=== PATIENT | female | born 1985 | race African-American/Black ===

== ENCOUNTER 2016-11-08 14:02 | Observation (INO) ==
--- NOTE | 2016-11-08 15:21 | Emergency Department Note ---
Arrival - Arrival Chief Complaint: Upper Respiratory Stated Complaint: sob,cp,coughing ED Nursing Triage Note: C/O CHEST PAIN WITH COUGHING. PT STATES "SHE IS COUGHING UP GREEN THICK MUCUS". PT IS 13 WEEKS GESTATION. Mode of Arrival: Wheelchair Source: Patient Time Seen by Provider: 11/08/16 15:02 - History of Present Illness HPI Narrative: 31 y/o female presents to the ER complaining of chest pain, dyspnea, and productive cough. Symptoms started 4-5 days ago. Patient states she was seen in the ER on 11/04/16 and given steroids and breathing treatments with little relief. Patient states she is using her albuterol at home but symptoms are not improving. Denies fever or chills. Patient is currently 13 weeks . Past medical history significant for migraine, HTN, Asthma, sleep apnea, GERD, Hemorrhoids, NIDDM, Anemia, and anxiety. Onset (ago): day(s) (4-5) Consistency: constant Severity: mild Allergies/Adverse Reactions: Allergies Allergy/AdvReac Type Severity Reaction Status Date / Time Cefaclor [From Ceclor] Allergy ANAPHYLAXIS Verified 06/04/16 21:03 hydrocodone [From Lortab] Allergy HIVES Verified 06/04/16 21:03 Penicillins Allergy ANAPHYLAXIS Verified 06/04/16 21:03 sumatriptan [From Imitrex] Allergy HIVES Verified 06/04/16 21:03 Home Medications: Home Medications Medication Instructions Recorded Confirmed Type Albuterol Sulfate [Albuterol Neb] 2.5 mg RESP TX Q4HR PRN 06/03/16 06/04/16 History Calcium (Citrate) [Citracal] 600 mg DAILY 06/03/16 06/04/16 History Cholecalciferol (Vitamin D3) 1,000 units DAILY 06/03/16 06/04/16 History [Vitamin D3] Fluticasone/Vilanterol [Breo 1 puff INH DAILY 06/03/16 06/04/16 History Ellipta 100-25 Mcg INH] Garlic 1,000 mg PO DAILY 06/03/16 06/04/16 History Nieves Root 550 mg DAILY 06/03/16 06/04/16 History Levalbuterol Tartrate [Xopenex Hfa 450 mcg INH DAILY PRN 06/03/16 06/04/16 History Inhaler] Magnesium Oxide 400 mg PO DAILY 06/03/16 06/04/16 History Aubrey-3 Fatty Acids [Fish Oil] 1,000 mg DAILY 06/03/16 06/04/16 History Potassium Chloride [Klor-Con M20] 20 meq PO DAILY 06/03/16 06/04/16 History Promethazine Tab [Phenergan Tab] 25 mg PO Q4H 06/03/16 06/04/16 History Saccharomyces Boulardii [Probiotic] 1 tablet DAILY 06/03/16 06/04/16 History Sitagliptin Phos/Metformin HCl 1 each PO DAILY 06/03/16 06/04/16 History [Janumet Xr 100-1,000 mg Tablet] Triamterene/Hydrochlorothiazid 1 each PO DAILY 06/03/16 06/04/16 History [Triamterene-Hctz 37.5-25 mg Cp] clonazePAM [Clonazepam] 1 mg PO BID PRN 06/03/16 06/04/16 History diphenhydrAMINE HCl 25 mg PO Q6H PRN 06/05/16 06/05/16 History [diphenhydrAMINE Tab] oxyCODONE/ACETAMINOPHEN 5-325 1 tablet PO Q4H #30 tablet 06/07/16 Rx [Percocet 5-325] Review of System - Review of System 12 point system: reviewed and no additional remarkable complaints except as stated - Review of System Respiratory: Present: cough, wheezing, other (dyspnea) Medical,Surgical,& Family Hx - Medical History Cardio: History of: Hypertension Psychological: History of: Anxiety Disorders (Takes kolonpin PRN for anxiety) Neurology: History of: Migraine HEENT: Comment Only: Eye Problem (wears glasses) Endocrine: History of: Diabetes Mellitus (NIDDM) Respiratory: History of: Asthma, Obstructive Sleep Apnea (Does wear a CPAP at night), Respiratory Problems Gastrointestinal: History of: GERD, Hemorrhoids Musculoskeletal: History of: Back/Neck Problems (Lower Back Pain) No history of: Musculoskeletal Problems Hematology: History of: Anemia (Iron Deficent Anemia. Takes a shot once a month) Other: History of: Miscellaneous Medical Problems (morbid obesity) - Surgical History Reproductive Surgeries: Surgical HX of;: Breast Surgery (1997), Genitourinary Surgery - Family History Family History: Reports;: Family Hypertension - Social History Smoking Status: Never smoker Frequency of Alcohol Use: None Type of Drug Use: None Exam Vital Signs: Vital Signs Temperature 98.0 F 11/08/16 15:05 Pulse Rate 91 H 11/08/16 15:05 Respiratory Rate 24 11/08/16 15:05 Blood Pressure 141/114 11/08/16 15:05 O2 Sat by Pulse Oximetry 98 11/08/16 14:11 - General General appearance: alert, in no apparent distress - ENT ENT exam: Present: normal exam, normal oropharynx, mucous membranes moist - Chest Chest inspection: Present: normal inspection - Respiratory Respiratory exam: Present: normal lung sounds bilaterally - Cardiovascular Cardiovascular exam: Present: regular rate, normal rhythm, normal heart sounds - Abdominal Exam Abdominal exam: Present: soft, normal bowel sounds. Absent: tenderness - Extremities Exam Extremities exam: Present: normal inspection, full ROM - Neurological Exam Neurological exam: Present: alert, oriented X3 - Psychiatric Psychiatric exam: Present: normal affect, normal mood - Skin Skin exam: Present: warm, dry Course - Consultations Consultation #1: Dr. Mack Time: 16:05 (Will admit to Dr. Mack for asthma exacerbation ) Results - Labs CBC & BMP: 11/08/16 15:39 Lab Results: I have reviewed the patients labs Disposition Clinical Impression: Asthma exacerbation, Case discussed with: patient Disposition: Still a Patient Condition: Stable
[2016-11-08] MEDS ORDERED: ALBUTEROL 2.5 MG/3 ML NEB RESP TX STA (15:53)
[2016-11-08 15:56] LABS: Basophils % 0.2 % (0.0-0.8); Eosinophils # 0.1 10*3/uL (0.0-0.87); Eosinophils % 1.1 % (0.00-10.9); Hematocrit 32.2 VOL% (35.7-47.0); Hemoglobin 11.1 GM/DL (12.0-16.0); Immature Granulocytes % 0.4 %; Immature Granulocytes Absolute 0.05 #; Lymphocytes # 3.8 10*3/uL (1.4-4.0); Lymphocytes % 33.7 % (21.3-54.2); Mean Corpuscular HGB Conc 34.5 GM/DL (32-36); Mean Corpuscular Hemoglobin 30 PG (27-34); Mean Corpuscular Volume 86.6 FL (87-102); Mean Platelet Volume 8.5 FL (9.6-12.0); Monocytes # 0.8 10*3/uL (0.11-0.8); Monocytes % 7.3 % (1.7-12.7); Neutrophils # 6.5 10*3/uL (1.4-7.4); Neutrophils % 57.3 % (38.7-73.9); Platelet Count 265 T/CUMM (130-400); Red Blood Count 3.72 MC/CUMM (3.8-5.5); Red Cell Distribution Width 12.7 % (9.3-17.3); White Blood Count 11.4 T/CUMM (4-12)
[2016-11-08 16:24] LABS: Albumin 3.3 G/DL (3.4-5.0); Bilirubin,Total 0.4 MG/DL (0.2-1.0); Calcium 9.5 MG/DL (8.5-10.1); Osmolality,Calculated 269.7 MOS/KG (273-304); Potassium 3.4 MMOL/L (3.5-5.1); Total Protein 6.8 G/DL (6.4-8.3)
--- NOTE | 2016-11-08 16:51 | Hospitalist Consult Note ---
<Arturo Harrison - Last Filed: 11/08/16 16:52> Assessment and Plan (1) Asthma exacerbation Status: Acute Assessment and plan: We will medically manage symptoms during this admission. Will start corticosteriods and nebulizer treatments. Current Visit: Yes (2) Dehydration during Status: Acute Assessment and plan: Will replace volume. Repeat labs in AM. Current Visit: Yes History of Present Illness - Data of Consult Consult date: 11/08/16 Requesting Physician: Zee Mack - Consult Narrative Reason for consult: medical management of asthma History of present illness: This is a 31 year old -Iranian female that presented the ED with symptoms associated with asthma. The patient has a very impressive medical history of asthma, GERD, hypertension, anxiety, anemia, NIDDM, and obstructive sleep apnea. The patient is currently 13 weeks gestation at the present time. She was previously seen in the ED on 11/04 for symptoms similar in nature; in which she was evaluated, treated, and discharged home. She has had minimal relief since her previous hospital admission. She used her inhalers and took several nebulizer treatments; with minimal relief. Her symptoms became very severe this morning; she became alarmed. She presented to the ED for evaluation. She was seen and evaluated by the ED physician and her Dr. Mack her OB provider was notified. Upon further discussion, it was decided that the patient condition warranted hospital admission for the management of this condition. We were consulted by Dr. Mack to medically manage the patient's co- morbidities during this hospital admission. CC: - Home Medications and Allergies Home Medications: Home Medications Medication Instructions Recorded Confirmed Type Albuterol Sulfate [Albuterol Neb] 2.5 mg RESP TX Q4HR PRN 06/03/16 06/04/16 History Calcium (Citrate) [Citracal] 600 mg DAILY 06/03/16 06/04/16 History Cholecalciferol (Vitamin D3) 1,000 units DAILY 06/03/16 06/04/16 History [Vitamin D3] Fluticasone/Vilanterol [Breo 1 puff INH DAILY 06/03/16 06/04/16 History Ellipta 100-25 Mcg INH] Garlic 1,000 mg PO DAILY 06/03/16 06/04/16 History Nieves Root 550 mg DAILY 06/03/16 06/04/16 History Levalbuterol Tartrate [Xopenex Hfa 450 mcg INH DAILY PRN 06/03/16 06/04/16 History Inhaler] Magnesium Oxide 400 mg PO DAILY 06/03/16 06/04/16 History Patterson-3 Fatty Acids [Fish Oil] 1,000 mg DAILY 06/03/16 06/04/16 History Potassium Chloride [Klor-Con M20] 20 meq PO DAILY 06/03/16 06/04/16 History Promethazine Tab [Phenergan Tab] 25 mg PO Q4H 06/03/16 06/04/16 History Saccharomyces Boulardii [Probiotic] 1 tablet DAILY 06/03/16 06/04/16 History Sitagliptin Phos/Metformin HCl 1 each PO DAILY 06/03/16 06/04/16 History [Janumet Xr 100-1,000 mg Tablet] Triamterene/Hydrochlorothiazid 1 each PO DAILY 06/03/16 06/04/16 History [Triamterene-Hctz 37.5-25 mg Cp] clonazePAM [Clonazepam] 1 mg PO BID PRN 06/03/16 06/04/16 History diphenhydrAMINE HCl 25 mg PO Q6H PRN 06/05/16 06/05/16 History [diphenhydrAMINE Tab] oxyCODONE/ACETAMINOPHEN 5-325 1 tablet PO Q4H #30 tablet 06/07/16 Rx [Percocet 5-325] Allergies/Adverse Reactions: Allergies Allergy/AdvReac Type Severity Reaction Status Date / Time Cefaclor [From Ceclor] Allergy ANAPHYLAXIS Verified 06/04/16 21:03 hydrocodone [From Lortab] Allergy HIVES Verified 06/04/16 21:03 Penicillins Allergy ANAPHYLAXIS Verified 06/04/16 21:03 sumatriptan [From Imitrex] Allergy HIVES Verified 06/04/16 21:03 Medical,Surgical,& Family Hx - Medical History Cardio: History of: Hypertension Psychological: History of: Anxiety Disorders (Takes kolonpin PRN for anxiety) Neurology: History of: Migraine HEENT: Comment Only: Eye Problem (wears glasses) Endocrine: History of: Diabetes Mellitus (NIDDM) Respiratory: History of: Asthma, Obstructive Sleep Apnea (Does wear a CPAP at night), Respiratory Problems Gastrointestinal: History of: GERD, Hemorrhoids Musculoskeletal: History of: Back/Neck Problems (Lower Back Pain) No history of: Musculoskeletal Problems Hematology: History of: Anemia (Iron Deficent Anemia. Takes a shot once a month) Other: History of: Miscellaneous Medical Problems (morbid obesity) - Surgical History Reproductive Surgeries: Surgical HX of;: Breast Surgery (1997), Genitourinary Surgery - Family History Family History: Reports;: Family Hypertension - Social History Smoking Status: Never smoker Frequency of Alcohol Use: None Type of Drug Use: None 12 point system: reviewed and no additional remarkable complaints except as stated Exam - Constitutional Vitals: Period Temp Pulse Resp BP Sys/Sue Pulse Ox Last 24 Hr 98 F-98.0 F 90-91 20-24 141-151/93-114 98 General appearance: mild distress, over weight - Head Head exam: Present: normal inspection, normocephalic - Eye Eye exam: Present: EOMI Pupils: Present: LINDA, normal accommodation - ENT ENT exam: Present: normal exam - Neck Neck exam: Present: normal inspection. Absent: lymphadenopathy, meningismus, thyromegaly - Respiratory Respiratory exam: Present: accessory muscle use, wheezes. Absent: decreased breath sounds, rales, rhonchi, stridor - Cardiovascular Cardiovascular exam: Present: regular rate and rhythm. Absent: carotid bruit, diastolic murmur, gallop, JVD, rubs, systolic murmur - GI/Abdominal GI/Abdominal exam: Present: normal bowel sounds, soft - Extremities Exam Extremities exam: Present: normal inspection, normal capillary refill, full ROM - Back Exam Back exam: Present: normal inspection - Neurological Exam Neurological exam: Present: alert, oriented X3, CN II-XII intact, reflexes normal - Psychiatric Psychiatric exam: Present: normal affect - Skin Skin exam: Present: normal color, warm, dry Results - Labs CBC & BMP: 11/08/16 15:39 11/08/16 15:39 Lab Results: I have reviewed the past 24 hour labs <Kenyon Giron - Last Filed: 11/08/16 19:06> History of Present Illness - Consult Narrative History of present illness: Ms. Atwood is a 31 year old female who was case have discussed with the nurse practitioner, and have seen the patient independently. On exam she does not have significant wheeze. Breath sounds are clear but distant likely due to body habitus. She is in no acute distress, eating dinner. Agree with plan as outlined in the consultation. CC: Zee Mack, DO Exam - Constitutional Vitals: Period Temp Pulse Resp BP Sys/Sue Pulse Ox Last 24 Hr 98.6 F 90-104 18-22 101-151/57-93 98-98 Results - Labs CBC & BMP: 11/08/16 15:39 11/08/16 15:39
[2016-11-08] MEDS ORDERED: DEXTROSE 50% 25 GM/50 ML VIAL IV PRN ×2 (18:15)
[2016-11-08] MEDS ORDERED: GLUCAGON 1 MG VIAL IM PRN ×2 (18:15)
[2016-11-08] MEDS ORDERED: ACETAMINOPHEN 325 MG TABLET PO PRN (19:04)
--- NOTE | 2016-11-08 19:28 | XRay Report ---
Exam: XR chest 1V portable Date: 11/08/2016 6:58 PM Indication: Asthma exacerbation Comparison: 06/04/2016 Technical: AP portable Findings: Mild borderline cardiac enlargement is present on the mid inspiratory chest. No obvious infiltrates or effusions. The mediastinum is intact. Impression: 1. Borderline cardiac enlargement without acute pathology present. PROCEDURE INTERPRETED AT [facility] DEPARTMENT OF RADIOLOGY Final Report Signed by: Dr. Wayne German
[2016-11-08] MEDS: SODIUM CHLORIDE 0.9% 1,000 ML IV SCH (20:53)
[2016-11-08] MEDS: methylPREDNISolone SOD SUC 125 MG/2 ML VIAL IV SCH (20:53)
[2016-11-09] MEDS: ALBUTEROL 2.5 MG/3 ML NEB RESP TX PRN ×4 (02:45→20:10)
[2016-11-09] MEDS: SODIUM CHLORIDE 0.9% 1,000 ML IV SCH ×4 (02:51→23:31)
[2016-11-09] MEDS: methylPREDNISolone SOD SUC 125 MG/2 ML VIAL IV SCH ×3 (02:52→23:30)
[2016-11-09] MEDS ORDERED: AZITHROMYCIN 250 MG TABLET PO ONE (09:38)
[2016-11-09] MEDS: MULTIVITAMIN (PRENATAL) TABLET PO SCH (10:40)
[2016-11-09] MEDS: POTASSIUM CHLORIDE 20 MEQ TABLET PO SCH (10:40)
[2016-11-09] MEDS: MAGNESIUM OXIDE 400 MG TABLET PO SCH (10:40)
[2016-11-09] MEDS: metFORMIN 500 MG TABLET PO SCH ×2 (10:41→18:27)
[2016-11-09] MEDS: glyBURIDE 5 MG TABLET PO SCH ×2 (10:41→18:26)
[2016-11-09] MEDS ORDERED: diphenhydrAMINE CAP 25 MG CAPSULE PO PRN (10:58)
[2016-11-09] MEDS: OMEGA 3 ACID ETHYL ESTERS 1 GM CAPSULE PO SCH (11:25)
[2016-11-09] MEDS: ASPIRIN EC 81 MG TABLET PO SCH (11:25)
[2016-11-09] MEDS: CALCIUM (CITRATE) 200 MG TABLET PO SCH (11:25)
[2016-11-09] MEDS: CHOLECALCIFEROL 1,000 UNIT TABLET PO SCH (11:26)
[2016-11-09] MEDS: INSULIN REGULAR 100 UNIT/ML SUBCUT SCH ×3 (11:31→20:50)
--- NOTE | 2016-11-09 13:22 | Ultrasound Report ---
Referring Physician: Zee Mack Exam: US OB <= 14 weeks fetus Date: November 09, 2016 Reason: Evaluate well-being Comparison: None Technique: Transabdominal grayscale ultrasound images of the pelvis were obtained. Ultrasound images were captured and stored. Findings: The uterus measures 11.7 x 8.9 x 6.9 cm. There is a single intrauterine in a breech presentation. heart rate is 157 bpm. Amniotic fluid appears within normal limits. A yolk sac is not identified. The placenta is located anteriorly, and there is no evidence of placenta previa. The cervix measures 4.1 cm in length, and the internal os appears closed. anatomy is poorly evaluated due to the gestational age. BPD: 13 weeks 2 days HC: 13 weeks 3 days AC: 13 weeks 1 day FL: 12 weeks 5 days CRL: 13 weeks 2 days The composite estimated gestational age by ultrasound is 13 weeks 1 day with an SAMEERA of May 16, 2017. EFW is 68 g or 2 ounces. The HC/AC ratio is 1.24, which is within normal limits. The growth percentile is 9.9% and is based on the LMP. The right ovary measures 2.9 x 2.0 x 1.8 cm, and the left ovary measures 3.0 x 2.7 x 2.6 cm. There is a 1.8 x 1.6 x 1.5 cm simple cyst at the left ovary. Color flow is also seen at both ovaries. No free fluid is identified within the pelvis. Impression: 1. There is a single intrauterine in a breech presentation. Estimated gestational age by ultrasound is 13 weeks 1 day with an SAMEERA of May 16, 2017. 2. 1.8 cm left ovarian cyst. PROCEDURE INTERPRETED AT [facility] DEPARTMENT OF RADIOLOGY Final Report Signed by: Dr. Anna Zendejas
--- NOTE | 2016-11-09 14:17 | Hospitalist Progress Note ---
Assessment and Plan (1) Asthma exacerbation Status: Acute Assessment and plan: 1)asthma exacerbation- responding to steroids, nebs, azithromycin. Continue, exam improved. May be ready for discahrge soon. After she should see a manager multimedia to discuss other asthma treatments such as Xolair that are not indicated in . 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 3) Current Visit: No (2) Dehydration during Status: Acute Current Visit: Yes (3) Status: Acute Current Visit: Yes (4) Diabetes Status: Resolved Current Visit: No (5) Hypertension Status: Acute Current Visit: No Hospitalist: Subjective Interval history: Ms Atwood is feeling much better this morning. She says she is breathing more easily and the tightness in her chest from her asthma has resolved. She eating well. Her PCP Dr Chaney has treated her asthma exacerbation with steroids and antibiotics in August and September this year. Ms Atwood says that she is compliant with her medicines. When she has her best stretches of time with her asthma, she only uses her rescue inhaler twice a week. Most of the time however she uses her nebulizer [address] Chaney is monitoring a lung nodule found on CT here last Fall which is stable in size. This is her first . Exam - Constitutional Vitals: Period Temp Pulse Resp BP Sys/Sue Pulse Ox Last 24 Hr 97.0 F-98.7 F 86-108 18-22 101-151/55-93 95-99 General appearance: no acute distress, morbidly obese - Head Head exam: Present: normocephalic, atraumatic - Eye Eye exam: Present: EOMI. Absent: scleral icterus - Respiratory Respiratory exam: Present: clear to auscultation bilaterally. Absent: rales, rhonchi, wheezes - Cardiovascular Cardiovascular exam: Present: regular rate and rhythm - GI/Abdominal GI/Abdominal exam: Present: normal bowel sounds, soft. Absent: tenderness - Extremities Exam Extremities exam: Absent: edema - Neurological Exam Neurological exam: Present: alert, oriented X3 - Skin Skin exam: Present: warm. Absent: dry Results - Labs CBC & BMP: 11/08/16 15:39 11/08/16 15:39 Lab Results: I have reviewed the past 24 hour labs
[2016-11-09] MEDS ORDERED: methylPREDNISolone SOD SUC 125 MG/2 ML VIAL IV SCH (14:30)
[2016-11-09] MEDS: PSEUDOEPHEDRINE 30 MG TABLET PO PRN (20:51)
[2016-11-10] MEDS: ALBUTEROL 2.5 MG/3 ML NEB RESP TX PRN (03:30)
[2016-11-10 07:32] VITALS: BP 107/54
[2016-11-10] MEDS: INSULIN REGULAR 100 UNIT/ML SUBCUT SCH ×2 (07:53→11:44)
[2016-11-10] MEDS: metFORMIN 500 MG TABLET PO SCH (08:48)
[2016-11-10] MEDS: POTASSIUM CHLORIDE 20 MEQ TABLET PO SCH (08:48)
[2016-11-10] MEDS: CALCIUM (CITRATE) 200 MG TABLET PO SCH (08:48)
[2016-11-10] MEDS: MAGNESIUM OXIDE 400 MG TABLET PO SCH (08:49)
[2016-11-10] MEDS: CHOLECALCIFEROL 1,000 UNIT TABLET PO SCH (08:49)
[2016-11-10] MEDS: glyBURIDE 5 MG TABLET PO SCH (08:49)
[2016-11-10] MEDS: ASPIRIN EC 81 MG TABLET PO SCH (08:49)
[2016-11-10] MEDS: OMEGA 3 ACID ETHYL ESTERS 1 GM CAPSULE PO SCH (08:49)
[2016-11-10] MEDS: MULTIVITAMIN (PRENATAL) TABLET PO SCH (08:50)
[2016-11-10] MEDS: PSEUDOEPHEDRINE 30 MG TABLET PO PRN (08:53)
[2016-11-10] MEDS ORDERED: AZITHROMYCIN 250 MG TABLET PO SCH (09:00)
--- NOTE | 2016-11-10 10:22 | Ultrasound Report ---
US OB <= 14 weeks fetus Indication: heart tones Comparison: OB ultrasound dated November 09, 2016 Technique: Multiple longitudinal and transverse sonographic images of the maternal abdomen/pelvis were obtained with transabdominal probe for evaluation of . Findings: Uterus measures 16.1 x 9.8 x 10.8 cm. Single live intrauterine demonstrate a. heart rate 151 bpm. [place]-rump length measures 7.1 cm corresponding to ultrasound gestational age 13 weeks 2 days. Placenta not fully formed. Amniotic fluid volume grossly unremarkable. Right ovary measures 2.6 x 1.8 x 2.0 cm. Left ovary measures 5.0 x 2.3 x 3.4 cm and demonstrates a 1.6 cm cyst. IMPRESSION: Single live intrauterine . PROCEDURE INTERPRETED AT [facility] DEPARTMENT OF RADIOLOGY Final Report Signed by: Dr Kermit Reynoso
--- NOTE | 2016-11-10 10:44 | Hospitalist Progress Note ---
Assessment and Plan (1) Asthma exacerbation Status: Acute Assessment and plan: 1)asthma exacerbation- responding to steroids, nebs, azithromycin. Continue, exam improved. May be ready for discahrge soon. After she should see a auto service mechanic to discuss other asthma treatments such as Xolair that are not indicated in . 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 3) Current Visit: No (2) Dehydration during Status: Acute Current Visit: Yes (3) Status: Acute Current Visit: Yes (4) Diabetes Status: Acute Current Visit: No (5) Hypertension Status: Acute Current Visit: No Hospitalist: Subjective Interval history: Ms Atwood is feeling much better today. She is breathing easily and her head congestion is improved. She is being discharged by DR Mack. Her lungs are clear, sats good on RA. She wants to go home. She will complete her Zpack and take a prednisone taper- I have escribed it . She should follow up with Dr Chaney as well as with Dr Mack. Exam - Constitutional Vitals: Period Temp Pulse Resp BP Sys/Sue Pulse Ox Last 24 Hr 97.4 F-99.3 F 82-108 18-24 101-122/54-82 96-99 Results - Labs CBC & BMP: 11/08/16 15:39 11/08/16 15:39 Specialty Discharge - Follow Up or Referrals Follow up with: Zee Mack DO [Physician] - 11/17/16 1:15 pm
[2016-11-10] MEDS: methylPREDNISolone SOD SUC 125 MG/2 ML VIAL IV SCH (11:43)
== END 2016-11-10 12:30 | disposition home or self-care (01) ==
LOC: N.EDINP 14:02 → N.ED 14:02 → N.OB 18:16
PROVIDERS: ADMIT Obstetrics & Gynecology; ATTEND Obstetrics & Gynecology

== ENCOUNTER 2017-02-25 12:18 | Observation (INO) ==
[2017-02-25 13:11] LABS: Apearance,Urine CLEAR (Clear); Bacteria,Urine Occasional /HPF (Few); Bilirubin,Urine Negative (Negative); Blood, Urine Negative (Negative); Glucose,Urine (UA) Negative (Negative); Ketones,Urine Negative (Negative); Mucus,Urine Occasional /LPF (Occasional); Nitrite,Urine Negative (Negative); Protein,Urine Negative; RBC,Urine 1 /HPF (0-4); Squamous Epithelial Cell,Urine Occasional /HPF (0-10); Urine Color Yellow (Yellow); Urine Specific Gravity 1.013 (1.001-1.035); Urine Urobilinogen < 2.0 EU/DL (0.2-1.0); WBC,Urine 1 /HPF (0-6)
--- NOTE | 2017-02-25 14:03 | EKG Report ---
Stationary ECG Study [facility] Test Date: 02/25/2017 2:03:52 PM Pat Name: ZACH LI Department: Room: [facility] Gender: F Hearing Therapy Director: UNIQUE : 1985 Requested by: Elke Samano Order Number: [id number] Reading MD: DENIA BALDERAS Intervals [place] Rate: 93 P: -56 CA: 122 QRS: 21 QRSD: 83 T: 24 QT: 373 QTc: 424 Interpretive Statements SINUS RHYTHM at 93 bpm CA WP Electronically Signed On 02-26-17 12:20:43 CDT by DENIA BALDERAS [email or web address]
[2017-02-25 14:20] LABS: Basophils % 0.1 % (0.0-0.8); Eosinophils # 0.1 10*3/uL (0.0-0.87); Eosinophils % 0.8 % (0.00-10.9); Immature Granulocytes Absolute 0.11 #; Lymphocytes # 3.2 10*3/uL (1.4-4.0); Lymphocytes % 28.8 % (21.3-54.2); Mean Corpuscular HGB Conc 34.5 GM/DL (32-36); Mean Corpuscular Hemoglobin 30 PG (27-34); Mean Corpuscular Volume 87.9 FL (87-102); Mean Platelet Volume 8.5 FL (9.6-12.0); Monocytes % 9.2 % (1.7-12.7); Neutrophils # 6.6 10*3/uL (1.4-7.4); Neutrophils % 60.1 % (38.7-73.9); Platelet Count 225 T/CUMM (130-400); Red Cell Distribution Width 14.5 % (9.3-17.3)
[2017-02-25 14:48] LABS: Free T4 (Free Thyroxine) 0.84 NG/DL (0.76-1.46); Thyroid Stimulating Hormone 1.72 uIU/ml (0.358-3.74)
--- NOTE | 2017-02-25 14:57 | Ultrasound Report ---
US OB limited Indication: Need cervical length Comparison: OB ultrasound dated January 05, 2017 Technique: Multiple longitudinal and transverse sonographic images of the maternal abdomen/pelvis were obtained with transabdominal probe for limited OB evaluation. Findings: Single live intrauterine . presentation breech. Placenta location anterior. heart rate 131 bpm. Cervical length 3.6 cm. IMPRESSION: As above. PROCEDURE INTERPRETED AT [facility] DEPARTMENT OF RADIOLOGY Final Report Signed by: Dr Kermit Reynoso
[2017-02-25] MEDS ORDERED: GLUCAGON 1 MG VIAL IM PRN (16:05)
[2017-02-25] MEDS ORDERED: DEXTROSE 50% 25 GM/50 ML VIAL IV PRN (16:05)
--- NOTE | 2017-02-25 18:07 | Cardiology Consult Note ---
Assessment and Plan (1) Chest pain Status: Acute Assessment and plan: 1. 31-year-old BMI 59 BF 28 week gestation with significant asthma and recurrent episodes of atypical chest pain with a pleuritic component, and negative echocardiogram here a few months ago with EF 60%, and normal EKG today. 2. She does not appear to be in heart failure, and I suspect her severe asthma as part of her dyspnea as well as her and weight; she should continue her regular asthma medications. She might benefit from another round of steroids if that is appropriate for a woman of her gestation. 3. Pepcid or other medication for GERD 4. I do not suspect cardiomyopathy or any cardiac problems. Current Visit: Yes History of Present Illness - Consult Narrative History of present illness: Ms. Atwood is a 31 year old female is 28 weeks and earlier was having some intermittent chest pain and dyspnea. Reviewing her records she has had numerous ER visits and follow-up visits for this type of thing. I see the hospitalist had recommended some steroids and other medications for asthma exacerbation. She had a normal echocardiogram a few months ago with EF 60%. She is not having presyncope or syncope. Her chest pain frequently occurs while sitting down or laying down. She only occasionally has trouble swallowing things. She notes that she has had some reflux problems in the past. She is on multiple asthma medications and takes them regularly. She does not have exertional component to her chest pain. There is a pleuritic component. Her chest is a bit tender to palpation today on my examination per CC: Elke Starkey-Alfredo, - Home Medications and Allergies Home Medications: Home Medications Medication Instructions Recorded Confirmed Type Albuterol Sulfate [Albuterol Neb] 2.5 mg RESP TX Q4HR PRN 06/03/16 02/25/17 History Calcium (Citrate) [Citracal] 600 mg PO BID 06/03/16 02/25/17 History Fluticasone/Vilanterol [Breo 1 puff INH QAM 06/03/16 02/25/17 History Ellipta 100-25 Mcg INH] Levalbuterol Tartrate [Xopenex Hfa 450 mcg INH DAILY PRN 06/03/16 02/25/17 History Inhaler] Magnesium Oxide 400 mg PO QAM 06/03/16 02/25/17 History [place]-3 Fatty Acids [Fish Oil] 1,000 mg PO QAM 06/03/16 02/25/17 History Potassium Chloride [Klor-Con M20] 40 meq PO BID MDD 80 MEQ 06/03/16 02/25/17 History diphenhydrAMINE HCl 25 mg PO Q6H PRN MDD 25MG 06/05/16 02/25/17 History [diphenhydrAMINE Tab] Aspirin [Ecotrin] 1 tablet PO QAM 11/08/16 02/25/17 History NIFEdipine [Nifedipine ER] 30 mg PO QAM 11/08/16 02/25/17 History No122/Iron/Folic Acid 1 tablet PO QAM MDD ONE TAB 11/08/16 02/25/17 History [ Multi Tablet] Theophylline ER Cap (24 Hr) 300 mg PO DAILY #30 capsule 12/30/16 02/25/17 Rx [Tony-24] Insulin Aspart [NovoLOG] 16 units SUBCUT TID W/MEALS 01/28/17 02/25/17 History Insulin Glargine [Lantus] 54 unit SUBCUT BEDTIME 01/28/17 02/25/17 History Allergies/Adverse Reactions: Allergies Allergy/AdvReac Type Severity Reaction Status Date / Time Cefaclor [From Ceclor] Allergy Severe ANAPHYLAXIS Verified 01/24/17 15:43 hydrocodone [From Lortab] Allergy Severe HIVES Verified 01/24/17 15:43 Penicillins Allergy Severe ANAPHYLAXIS Verified 01/24/17 15:43 sumatriptan [From Imitrex] Allergy Severe HIVES Verified 01/24/17 15:43 Medical,Surgical,& Family Hx - Medical History Cardio: History of: Hypertension Psychological: History of: Anxiety Disorders (Takes kolonpin PRN for anxiety) Neurology: History of: Migraine HEENT: History of: Eye Problem (wears glasses) Endocrine: History of: Diabetes Mellitus (NIDDM) Respiratory: History of: Asthma, Obstructive Sleep Apnea (Does wear a CPAP at night), Respiratory Problems Gastrointestinal: History of: GERD, Hemorrhoids Musculoskeletal: History of: Back/Neck Problems (Lower Back Pain) No history of: Musculoskeletal Problems Hematology: History of: Anemia (Iron Deficent Anemia. Takes a shot once a month) Other: History of: Miscellaneous Medical Problems (morbid obesity) - Surgical History Reproductive Surgeries: Surgical HX of;: Breast Surgery (1997-reduction), Dilation and Curettage (2010), Genitourinary Surgery, Gynecologic Surgery (LEEP- 2011) - Family History Family History: Reports;: Family Cancer (mother), Family Diabetes (mother, father), Family Hypertension (mohter, father), Family Stroke (mother) - Social History Smoking Status: Never smoker Physical Examination General: Present: No Apparent Distress Neck: Present: Supple Neck Cardiac: Present: Tachycardia. Absent: Systolic Murmur, Diastolic Murmur Lungs: Present: No Wheeze, Rales, Rhonchi Abdomen: Present: Soft (Somewhat protuberant) Extremities: Present: No Edema, Other (Warm extremities) Result/EKG - Labs CBC & BMP: 02/25/17 14:11 Labs: Laboratory Results - last 24 hr 02/25/17 02/25/17 02/25/17 12:44 14:11 14:11 WBC 11.0 RBC 3.30 L Hgb 10.0 L Hct 29.0 L MCV 87.9 MCH 30 MCHC 34.5 RDW 14.5 Plt Count 225 MPV 8.5 L Neut % (Auto) 60.1 Lymph % (Auto) 28.8 [place] % (Auto) 9.2 Eos % (Auto) 0.8 Baso % (Auto) 0.1 Neut # (Auto) 6.6 Lymph # (Auto) 3.2 [place] # (Auto) 1.0 H Eos # (Auto) 0.1 Baso # (Auto) 0.0 Immature Gran % 1.0 Nucleated RBC % 0.0 Immature Gran # 0.11 Nucleated RBCs # 0.00 Free T4 0.84 TSH 3rd Generation 1.720 Urine Color Yellow Urine Appearance Clear Urine pH 7.0 Ur Specific [place] 1.013 Urine Protein Negative Urine Glucose (UA) Negative Urine Ketones Negative Urine Blood Negative Urine Nitrate Negative Urine Bilirubin Negative Urine Urobilinogen < 2.0 H Urine Leukocytes Negative Urine RBC 1 Urine WBC 1 Ur Squamous Epith Cells Occasional Urine Bacteria Occasional Urine Mucus Occasional Ur Culture Indicated? Not indicated - EKG EKG results: WNL, sinus rhythm
[2017-02-25 20:25] LABS: Alanine Aminotransferase 12 U/L (13-56); Albumin 2.6 G/DL (3.4-5.0); Alkaline Phosphatase 76 U/L (45-117); Aspartate Amino Transferase 13 U/L (0-37); Bilirubin,Total < 0.39 MG/DL (0.2-1.0); Blood Urea Nitrogen 5 MG/DL (7-18); Calcium 8.3 MG/DL (8.5-10.1); Glucose 143 MG/DL (74-106); Osmolality,Calculated 275.5 MOS/KG (273-304); Potassium 3.6 MMOL/L (3.5-5.1); Sodium 139 MMOL/L (136-145); Total Protein 5.8 G/DL (6.4-8.3); Uric Acid 2.1 MG/DL (2.6-6.0)
[2017-02-25] MEDS ORDERED: INSULIN REGULAR 100 UNIT/ML SUBCUT SCH (21:00)
[2017-02-26 07:49] LABS: Collection Time,Urine 12 HOURS
[2017-02-26 08:03] LABS: Total Protein 12 Hr Ur Result 192 MG/12HR (0-75)
[2017-02-26 10:12] LABS: Basophils % 0.2 % (0.0-0.8); Eosinophils # 0.1 10*3/uL (0.0-0.87); Eosinophils % 0.9 % (0.00-10.9); Hematocrit 27.1 VOL% (35.7-47.0); Hemoglobin 9.4 GM/DL (12.0-16.0); Immature Granulocytes % 0.8 %; Immature Granulocytes Absolute 0.07 #; Lymphocytes # 2.5 10*3/uL (1.4-4.0); Lymphocytes % 27.9 % (21.3-54.2); Mean Corpuscular HGB Conc 34.7 GM/DL (32-36); Mean Corpuscular Hemoglobin 30 PG (27-34); Mean Corpuscular Volume 87.7 FL (87-102); Mean Platelet Volume 8.5 FL (9.6-12.0); Monocytes # 0.7 10*3/uL (0.11-0.8); Monocytes % 7.2 % (1.7-12.7); Neutrophils # 5.7 10*3/uL (1.4-7.4); Platelet Count 190 T/CUMM (130-400); Red Blood Count 3.09 MC/CUMM (3.8-5.5); Red Cell Distribution Width 14.5 % (9.3-17.3)
[2017-02-26 10:46] LABS: Albumin 2.4 G/DL (3.4-5.0); Bilirubin,Total 0.4 MG/DL (0.2-1.0); Calcium 8.7 MG/DL (8.5-10.1); Osmolality,Calculated 272.7 MOS/KG (273-304); Potassium 3.6 MMOL/L (3.5-5.1); Total Protein 5.7 G/DL (6.4-8.3); Uric Acid 2.4 MG/DL (2.6-6.0)
--- NOTE | 2017-02-26 11:47 | OB/GYN Progress Note ---
Assessment and Plan (1) Anemia affecting Status: Acute Current Visit: Yes (2) Asthma complicating , antepartum Status: Acute Current Visit: Yes (3) Hypertension Status: Acute Assessment and plan: 1. 12 hr urine protein 192mg, pt procardia increased to 60mg daily, bps ranging 120-150s systolic, pre-e labs wnl. Pt. did not have a previous baseline 24 hr urine protein. Plan is to discharge home with bp monitoring and pre-e precautions with f/u with Dr. Mack on Tuesday02/28/17. Pt. has appt with her [place] doctor on 03/08/17. Pt. advised if she develops headache or blurred vision or if her pressure is elevated she should return to labor and delivery. Pt. expressed her understanding. 2. Cardiology cleared the patient for discharge 3. 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 31y/o @ 29 wks with CHTN, Pregestational DM, Morbidly Obese, Asthma, Anemia care with Dr. Mack and most recently ASHANTI Velazquez presented to labor and delivery with complaints of Chest discomfort specifically her heart. Denies shortness of breath except on exertion. Pt. denies vaginal bleeding, decreased fm, contractions or leakage of fluid. No headache or blurred vision. 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
[2017-02-26 11:52] VITALS: BP 151/87
--- NOTE | 2017-02-26 12:14 | OB/GYN Progress Note ---
Assessment and Plan (1) Anemia affecting Status: Acute Current Visit: Yes (2) Asthma complicating , antepartum Status: Acute Current Visit: Yes (3) Hypertension Status: Acute Assessment and plan: 1. 12 hr urine protein 192mg, pt procardia increased to 60mg daily, bps ranging 120-150s systolic, pre-e labs wnl. Pt. did not have a previous baseline 24 hr urine protein. Plan is to discharge home with bp monitoring and pre-e precautions with f/u with Dr. Mack on Tuesday02/28/17. Pt. has appt with her [place] doctor on 03/08/17. Pt. advised if she develops headache or blurred vision or if her pressure is elevated she should return to labor and delivery. Pt. expressed her understanding. 2. Cardiology cleared the patient for discharge 3. 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
== END 2017-02-26 12:40 | disposition home or self-care (01) ==
LOC: N.LDOUT 12:18 → N.LD 12:18 → EDOUTPBED 20:11 → UNDODEPREF 02-28 11:47
PROVIDERS: ADMIT Obstetrics & Gynecology; ATTEND Obstetrics & Gynecology